=== PATIENT | male | born 1965 | race Caucasian/White ===

== ENCOUNTER → 2016-08-15 | Outpatient (CLI) | payer BC ==
[~2016-08-15] MED LIST: CYCL-259 PO; HYDR-3241 PO
[2016-08-15 13:46] LABS: HEMOGLOBIN 16.6 g/dL (13.7-18.0)
[2016-08-15 13:54] LABS: BLOOD UREA NITROGEN 15 mg/dL (7-18)
== END | disposition home or self-care (01) ==
LOC: STAR 12:38
PROVIDERS: ATTEND Neurological Surgery
DX: Z01.818 Encounter for other preprocedural examination (principal); M54.12 Radiculopathy, cervical region; R79.1 Abnormal coagulation profile
CPT/HCPCS: 36415; 71020; 80048; 85025; 85610; 85730; 93005

== ENCOUNTER 2016-08-21 06:48 | Day surgery (SDC) | payer BC ==
[2016-08-15 13:05] VITALS: BP 120/88
[~2016-08-21] VITALS: Ht 180.3 cm; Wt 87.0 kg
[2016-08-21] MEDS ORDERED: THROMBIN 5,000 UNIT VIAL TP ONE (06:53)
[2016-08-21] MEDS ORDERED: BACITRACIN 50,000 UNIT ONE (06:53)
[2016-08-21] MEDS ORDERED: BUPIVACAINE/PF-EPI 0.5% 1:200K ONE (06:53)
[2016-08-21] MEDS ORDERED: LACTATED RINGERS 1,000 ML IV SCH (08:10)
[2016-08-21 08:18] VITALS: BP 120/88
[2016-08-21] MEDS ORDERED: MIDAZOLAM 1 MG/ML, 2ML ONE (08:22)
[2016-08-21] MEDS ORDERED: FENTANYL PF 250 MCG/5ML ONE (08:22)
[2016-08-21] MEDS ORDERED: BUPIVACAINE/PF-EPI 0.25% 1:200K INFIL ONE (10:18)
[2016-08-21] MEDS ORDERED: ACETAMINOPHEN 650 MG/20.3 ML UDC ONE (11:31)
[2016-08-21] MEDS ORDERED: DIAZEPAM 5 MG/ML, 2ML ONE (11:31)
[2016-08-21] MEDS ORDERED: FENTANYL PF 100 MCG/2ML ONE (11:31)
[2016-08-21] MEDS ORDERED: OXYcodone 5 MG/5 ML ORAL.SOL UDC ONE (11:32)
[2016-08-21] MEDS ORDERED: ACETAMINOPHEN 325 MG TABLET ONE (11:32)
[2016-08-21] MEDS: FENTANYL PF 100 MCG/2ML IV PRN ×2 (11:48→11:58)
[2016-08-21] MEDS ORDERED: PROMETHAZINE 25 MG/ML, 1ML IV PRN (12:00)
[2016-08-21] MEDS ORDERED: MEPERIDINE/PF 25MG/0.5ML IVPush PRN (12:00)
[2016-08-21] MEDS ORDERED: hydrALAzine 20 MG/ML, 1ML IV PRN (12:00)
[2016-08-21] MEDS ORDERED: ACETAMINOPHEN 325 MG TABLET PO PRN (12:00)
[2016-08-21] MEDS ORDERED: HYDROmorphone 1 MG/ML, 1ML IV PRN (12:00)
[2016-08-21] MEDS ORDERED: EPHEDRINE 50 MG/ML, 1ML IVPush PRN (12:00)
[2016-08-21] MEDS ORDERED: LABETALOL 5MG/ML, 20ML IV PRN (12:00)
[2016-08-21] MEDS ORDERED: ALBUTEROL SULFATE 2.5 MG/3 ML NPPB PRN (12:00)
[2016-08-21] MEDS ORDERED: MIDAZOLAM 1 MG/ML, 2ML IV PRN (12:00)
[2016-08-21] MEDS ORDERED: METOPROLOL 1 MG/ML, 5ML IV PRN (12:00)
[2016-08-21] MEDS ORDERED: ONDANSETRON 2MG/ML, 2ML IVPush PRN (12:00)
[2016-08-21] MEDS ORDERED: OXYcodone 5 MG/5 ML ORAL.SOL UDC PO PRN (12:00)
[2016-08-21] MEDS ORDERED: DIAZEPAM 5 MG/ML, 2ML IVPush PRN (12:30)
[2016-08-21] MEDS ORDERED: DIAZEPAM 5 MG TABLET ONE (13:28)
[2016-08-21] MEDS ORDERED: OXYcodone IR 5MG TABLET ONE (13:29)
[2016-08-21] MEDS ORDERED: DIAZEPAM 5 MG TABLET PO ONE (13:30)
[2016-08-21] MEDS ORDERED: OXYcodone IR 5MG TABLET PO PRN (14:00)
[2016-08-21] MEDS ORDERED: DEXAMETHASONE 4 MG/ML, 1ML ONE (15:49)
[2016-08-21] MEDS ORDERED: NEOSTIGMINE 1 MG/ML, 10ML ONE (15:49)
[2016-08-21] MEDS ORDERED: GLYCOPYRROLATE 0.2MG/1ML ONE (15:49)
[2016-08-21] MEDS ORDERED: SUCCINYLCHOLINE 20 MG/ML, 10ML ONE (15:49)
[2016-08-21] MEDS ORDERED: PROPOFOL 10 MG/ML, 20ML ONE (15:49)
[2016-08-21] MEDS ORDERED: ROCURONIUM 10 MG/ML ONE (15:49)
[2016-08-21] MEDS ORDERED: ONDANSETRON 2MG/ML, 2ML ONE (15:49)
[2016-08-21] MEDS ORDERED: CEFAZOLIN 1,000 MG ONE (15:49)
== END 2016-08-21 15:15 | disposition home or self-care (01) ==
LOC: OUT 06:48
PROVIDERS: ATTEND Neurological Surgery
DX: M48.02 Spinal stenosis, cervical region (principal); M47.22 Other spondylosis with radiculopathy, cervical region; F19.10 Other psychoactive substance abuse, uncomplicated; Z87.891 Personal history of nicotine dependence; Z72.89 Other problems related to lifestyle; Z82.61 Family history of arthritis; Z82.49 Family history of ischemic heart disease and other diseases of the circulatory system; Z80.9 Family history of malignant neoplasm, unspecified
CPT/HCPCS: 63020; 72040; C1713; J0330; J0690; J1100; J2250; J2405; J2704; J2710; J3010; J3360; J7120; J3490